=== PATIENT | female | born 2000 | race Caucasian/White ===

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

== ENCOUNTER 2020-04-12 18:25 | Emergency (ER) | payer BC, MEDICAID ==
[~2020-04-12] VITALS: Ht 167.6 cm; Wt 75.0 kg
[2020-04-12 18:33] VITALS: BP 123/83
== END 2020-04-12 19:02 | disposition home or self-care (01) ==
LOC: ER 18:25
DX: R10.2 Pelvic and perineal pain (principal); F32.9 Major depressive disorder, single episode, unspecified; F12.90 Cannabis use, unspecified, uncomplicated
CPT/HCPCS: 99281